=== PATIENT | male | born 1955 | race Two or more races ===

== ENCOUNTER 2019-03-08 11:36 | Emergency (ER) | payer MEDICARE, MEDICAID ==
[~2019-03-08] VITALS: Ht 182.9 cm; Wt 104.8 kg
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
--- NOTE | 2019-03-08 11:50 | NUR ---
DR PIERCE AT BEDSIDE FOR EVAL.
--- NOTE | 2019-03-08 11:51 | NUR ---
CALLED AND LEFT A VOICEMAIL MESSAGE TO THE PATIENT'S , DEVON NOBLES, PER PATIENT'S REQUEST.
[2019-03-08] MEDS ORDERED: KETOROLAC TROMETHAMINE INJ 60 MG/2 ML VIAL IM ONE ×2 (11:55→12:00)
--- NOTE | 2019-03-08 11:55 | NUR ---
CALLED AND LEFT A VOICEMAIL MESSAGE TO PATIENT'S SON, OSITO NOBLES PER PATIENT'S REQUEST.
[2019-03-08] MEDS ORDERED: MORPHINE SULFATE INJ 4 MG/ML DISP.SYRIN ONE ×2 (12:50→12:55)
[2019-03-08] MEDS ORDERED: MORPHINE SULFATE INJ 10 MG/ML DISP.SYRIN IM ONE (13:00)
--- NOTE | 2019-03-08 13:09 | NUR ---
PAGED DR MORGAN FOR CONSULT
--- NOTE | 2019-03-08 13:27 | NUR ---
SUPERVISOR CELLARS AT BEDSIDE FOR SPLINT APPLICATION
--- NOTE | 2019-03-08 13:42 | NUR ---
REPAGED DR MORGAN
--- NOTE | 2019-03-08 14:17 | NUR ---
Patient discharged to home in stable condition. Written and verbal after care instructions given. Patient verbalizes understanding of instruction.
[2019-03-08 14:24] VITALS: BP 132/83
== END 2019-03-08 14:25 | disposition home or self-care (01) ==
LOC: ER 11:38
DX: S67.21XA Crushing injury of right hand, initial encounter (principal); J45.909 Unspecified asthma, uncomplicated; Z88.0 Allergy status to penicillin; W23.0XXA Caught, crushed, jammed, or pinched between moving objects, initial encounter; Y93.89 Activity, other specified; Y92.89 Other specified places as the place of occurrence of the external cause; Y99.8 Other external cause status
CPT/HCPCS: 29125; 73100; 73130; 96372 ×2; 99283; J1885; J2270